=== PATIENT | female | born 1950 | race Caucasian/White ===

== ENCOUNTER 2022-01-09 08:19 | Outpatient (CLI) | payer MEDICARE, SELFPAY ==
--- NOTE | 2022-01-09 08:45 | CRLHL7_ITS ---
For Patients: As a result of the Century Cures Act, medical imaging exams and procedure reports are released immediately into your electronic medical record. You may view this report before your referring provider. If you have questions, please contact your health care provider. BILATERAL SCREENING MAMMOGRAM WITH COMPUTER-AIDED DETECTION AND TOMOSYNTHESIS TECHNIQUE: CC and MLO views were obtained. These mammographic images have been obtained using full-field digital technique. These mammographic images were interpreted with the benefit of computer-aided detection. Breast Tomosynthesis was used in this interpretation. COMPARISON FILM: 11/09/20, 12/23/18/, 10/17/17. FINDINGS: There are scattered areas of fibroglandular density IMPRESSION: There is no radiographic evidence for malignancy. ASSESSMENT: BI-RADS Category 1: Negative RECOMMENDATION: Routine screening mammogram in 1 year. A lay language report of this examination will be provided to the patient. Nguyen Manley M.D. Diagnostic/Breast Radiologist [email or web address] BRIANNA/Dictated by: Nguyen Manley MD @ 01/09/2022 11:54:00 AM (Electronically Signed)
== END 2022-01-09 08:20 | disposition home or self-care (01) ==
LOC: MAMMO 08:19
PROVIDERS: PCP Internal Medicine; Visit Provider Family Medicine
DX: Z12.31 Encounter for screening mammogram for malignant neoplasm of breast (principal)
CPT/HCPCS: 77063; 77067

== ENCOUNTER 2022-06-17 08:14 | Outpatient (CLI) | payer MEDICARE, SELFPAY | END 2022-06-17 08:15 | disposition home or self-care (01) | PROVIDERS: PCP Internal Medicine; Visit Provider Internal Medicine | DX: E78.5 Hyperlipidemia, unspecified (principal); M85.80 Other specified disorders of bone density and structure, unspecified site | CPT/HCPCS: 80053; 80061 ==

== ENCOUNTER 2022-06-26 14:09 | Outpatient (CLI) | payer MEDICARE, SELFPAY ==
--- NOTE | 2022-06-26 14:30 | CRLHL7_ITS ---
For Patients: As a result of the Century Cures Act, medical imaging exams and procedure reports are released immediately into your electronic medical record. You may view this report before your referring provider. If you have questions, please contact your health care provider. DXA BONE MINERAL DENSITY STUDY Reason for exam: Osteopenia. Current height (in): 60.0. Weight (lb): 158.0 Menopause age: 25 Ethnicity: White 1. Have you had a previous hip or vertebral fracture? No. 2. Have you had any fractures during your adult life which did not result from significant trauma (e.g., auto accident)? No. 3. Did either of your parents have a hip fracture? No. 4. Do you smoke? No. 5. Have you ever taken Glucocorticoids? No. 6. Do you have rheumatoid arthritis? No. 7. Do you have secondary osteoporosis? No. 8. Do you drink 3 or more alcoholic drinks per day? No. 9. Are you being treated for osteoporosis? No. 10. Have you ever taken any of the following medications: Actonel, Evista, Fosamax, Miacalcin, Reclast, Boniva, Forteo, HRT (i.e. estrogen/hormone therapy), Protelos, Prolia, Vitamin D, Calcium, other ??? please specify. ANSWER: Yes, vitamin D. 11. Do you have any of the following medical conditions: Anorexia or bulimia, asthma or emphysema, end stage renal disease, hyperparathyroidism, any seizure disorders, cancer, inflammatory bowel diseases, hysterectomy, other ??? please specify. ANSWER: Yes, hysterectomy. 12. What was your maximum height (inches)? 60. 13. Do you perform weight bearing exercise regularly? No. 14. Do you regularly consume dairy products? Yes. 15. Do you drink caffeinated beverages? Yes. 16. At what age did your period start? 15. 17. Are you premenopausal? No. 18. How many full term pregnancies have you had? 2. 19. Have you ever missed your period for more than 6 months in a row (not including or menopause)? No. TECHNIQUE: Bone mineral density study was performed using the [employer] FINDINGS: The results of the study expressed as bone mineral density (BMD) are as follows: Lumbar spine L1 to L4: BMD: 0.829 g/cm2. T-score: -2.0. Z-score: 0.3. Neck Left: BMD: 0.644 g/cm2. T-score: -1.8. Z-score: 0.1. Right: BMD: 0.672 g/cm2. T-score: -1.6. Z-score: 0.4. Total Left: BMD: 0.838 g/cm2. T-score: -0.9. Z-score: 0.8. Right: BMD: 0.824 g/cm2. T-score: -1.0. Z-score: 0.7. IMPRESSION: Osteopenia. *Comparison exams done prior to 09/2019 were performed on different unit, [employer]. COMPARISON: Compared with scan of 06/02/2019, the bone mineral density has decreased by 6.9 percent at the spine and decreased by 0.8 percent at the hip. FRAX 10-year Fracture Risk Major Osteoporotic Fracture: 11 percent Hip Fracture: 2.2 percent Reported Risk Factors: [place] () Neck BMD=0.644, BMI=30.9 Carlos A Unger M.D. Diagnostic Radiologist [email or web address] DSM/pjt PT/Dictated by: Carlos A Unger MD @ 06/27/2022 6:26:00 AM (Electronically Signed)
== END 2022-06-26 14:10 | disposition home or self-care (01) ==
LOC: RAD 14:11
PROVIDERS: PCP Internal Medicine; Visit Provider Internal Medicine
DX: M85.80 Other specified disorders of bone density and structure, unspecified site (principal); M85.89 Other specified disorders of bone density and structure, multiple sites
CPT/HCPCS: 77080

== ENCOUNTER 2022-07-02 09:38 | Outpatient (CLI) | payer MEDICARE, SELFPAY | END 2022-07-02 09:39 | disposition home or self-care (01) | PROVIDERS: PCP Internal Medicine; Visit Provider Internal Medicine | DX: R79.89 Other specified abnormal findings of blood chemistry (principal); M85.80 Other specified disorders of bone density and structure, unspecified site | CPT/HCPCS: 82306 ==

== ENCOUNTER 2023-04-10 08:56 | Outpatient (CLI) | payer MEDICARE, SELFPAY ==
--- NOTE | 2023-04-10 09:15 | CRLHL7_ITS ---
For Patients: As a result of the Century Cures Act, medical imaging exams and procedure reports are released immediately into your electronic medical record. You may view this report before your referring provider. If you have questions, please contact your health care provider. BILATERAL SCREENING MAMMOGRAM WITH COMPUTER-AIDED DETECTION AND TOMOSYNTHESIS TECHNIQUE: CC and MLO views were obtained. These mammographic images have been obtained using full-field digital technique. These mammographic images were interpreted with the benefit of computer-aided detection. Breast tomosynthesis was used in this interpretation. COMPARISON FILM: 01/09/22, 11/09/20, 12/23/18. FINDINGS: There are scattered areas of fibroglandular density. IMPRESSION: There is no radiographic evidence for malignancy. ASSESSMENT: BI-RADS Category 2: Benign RECOMMENDATION: Routine screening mammogram in 1 year. A lay language report of this examination will be provided to the patient. CARLOS A HUERTA M.D. Diagnostic Radiologist [email or web address] JESSICA/mindy Transcribed: 04/11/2023, 1:[address]/Dictated by: Carlos A Huerta MD @ 04/11/2023 12:34:00 PM (Electronically Signed)
== END 2023-04-10 08:57 | disposition home or self-care (01) ==
LOC: MAMMO 08:57
PROVIDERS: PCP Internal Medicine; Visit Provider Internal Medicine
DX: Z12.31 Encounter for screening mammogram for malignant neoplasm of breast (principal)
CPT/HCPCS: 77063; 77067

== ENCOUNTER 2023-09-29 11:11 | Outpatient (CLI) | payer MEDICARE, SELFPAY ==
--- OUTSIDE RECORDS SUMMARY | 2023-10-01 18:32 | XMS_ITS | Clinical Summary ---
Author Organization [facility] [place], [place] [address] Care Team Providers Care Oyster Culturist Name Role Phone Cayden Montes MD Primary Care Provider [phone] Allergies Active Allergy Reactions Criticality Noted Date Comments Latex Rash 09/20/2015 Minocycline *Unknown Sulfa (Sulfonamide Antibiotics) Hives 09/05 Rivaroxaban Nausea Only 05/29/2016 Medications Medication Sig Dispensed Refills Start Date End Date Status cholecalciferol (VITAMIN D-3) 2,000 unit capsule Take 1 capsule by mouth once daily. 0 12/12/2015 Active Cetirizine (ZYRTEC) 10 mg cap Per pt taking daily 0 02/19/2016 Active ascorbic acid, vitamin C, (VITAMIN C) 1,000 mg tablet Take 1 tablet by mouth once daily. 0 03/09/2018 Active metoprolol succinate (TOPROL XL) 25 mg Sustained-Release tabletIndications:SVT (supraventricular tachycardia) (HC) Take 1 tablet by mouth once daily if needed for Other (Specify). 45 tablet Active Active Problems Problem Noted Date Diagnosed Date Atrial fibrillation 01/24/2016 Tachycardia Hyperlipidemia Carpal tunnel syndrome, bilateral Low vitamin D level Obesity Osteopenia Rosacea Family History Medical History Relation Name Comments Heart Disease Mother Diabetes Relation Name Status Comments Mother Social History Tobacco Use Types Packs/Day Years Used Date Smoking Tobacco: Never Smokeless Tobacco: Never Tobacco Cessation:Counseling Given: Yes Alcohol Use Standard Drinks/Week Comments No 0 (1 standard drink = 0.6 oz pur e alcohol) very rare Social Connections Answer Date Recorded Frequency of Communication with Friends and Fami ly Not on file 04/05/2021 Financial Resource Strain Answer Date R ecorded Difficulty of Paying Living Expenses Not on file 04/05/2021 Difficulty of Paying Living Expenses Not on file 04/05/2021 Sex and Gender Information Value Date Recorded Sex Assigned at Not on file Gender Identity Not on file Sexual Orientation Not on file Obstetrics History Last Filed Vital Signs Vital Sign Reading Time Taken Comments Blood Pressure 124/70 01/15/2023 8:26 AM CDT Pulse 78 01/15/2023 8:26 AM CDT Temperature 36.3 ??C (97.4 ??F) 04/12/2016 6:04 AM CS T Respiratory Rate 16 03/09/2018 9:03 AM NUT GRINDER Oxygen Saturation 98% 01/15/2023 8:26 AM CDT Inhaled Oxygen Concentration - - Weight 71.2 kg (157 lb) 01/15/2023 8:26 AM CDT Height 152.4 cm (5') 03/09/2018 9:03 AM NUT GRINDER Body Mass Index 30.66 03/09/2018 9:03 AM NUT GRINDER Plan of Treatment Health Maintenance Due Date Last Done Comments Tdap 1960 Depression screening for age 12+ 1961 Hepatitis C screening for ag e 18-79 11/05/1967 Tetanus booster 1969 Colonoscopy through age 75 1994 Mammogram for age 45-75 1994 Zoster (shingles) series for age 50+ (1 of 2) 11/05/1999 Lipids for age 45-75 04/16/2007 04/16/2002, 04/16/19 03 DEXA/DXA scan for age 65+ 2014 Medicare Wellness for age 65+ 2014 Pneumococcal series for age 65+ (1 of 1 - PCV) 2014 BMI (ht and wt on same day) for age 18+ 03/09/2019 03/09/2018, 12/25/2016, 11/11/2016, Additional history exists COVID-19 vaccine series (2022-24 season) 2022 03/20/2022, 09/25/2021, 01/22/2021, Additional history exists Influenza for age 65+ 12/07/2023 Procedures Procedure Name Priority Date/Time Associated Diagnosis Comments CHOLESTEROL,TOTAL Routine 04/16/2002 7:4 5 AM NUT GRINDER from Last 3 Months or Most Recently Relevant to Health Maintenance Results * CHOLESTEROL,TOTAL (04/16/2002 7:45 AM NUT GRINDER) CHOLESTEROLMELODY AL 194 110 - 199 mg/dL 04/16/2002 7:45 AM NUT GRINDER Narrative 09/16/2003 12:53 PM CDT Ordered by an unspecified provider. Other Clinical Staff CHEMISTRY from Last 3 Months or Most Recently Relevant to Health Maintenance Insurance Payer Benefit Plan / Group Subscriber ID Effective Dates Phone Address Type MEDICARE PART B - HB USE ONLY MEDICARE PART B HB ONLY [id number] 2015-Present ATTN: CLAIMS [address] [place] [address] MEDICARE PART A - HB USE ONLY MEDICARE PART A HB ONLY [id number] 2014-Present ATTN: CLAIMS [address] [place] [address] [employer] [id number] 2021-Present [address] [place] [address] Advance Directives * Full Code (Latest Code Status on File) Date Activated Date Inactivated Comments 04/11/2016 8:56 AM 04/12/2016 10:13 AM Care Teams Oyster Culturist Relationship Specialty Start Date End Date Cayden Montes MD [address] [place] [address] PCP - General Internal Medicine 03/09/18
== END 2023-09-29 11:12 | disposition home or self-care (01) ==
LOC: NFLDREF 10-01 18:30
PROVIDERS: PCP Internal Medicine; Referring Provider Internal Medicine; Visit Provider Registered Nurse
DX: R30.0 Dysuria (principal); N39.0 Urinary tract infection, site not specified; L20.9 Atopic dermatitis, unspecified
CPT/HCPCS: 87086